=== PATIENT | female | born 1945 | race African-American/Black ===

== ENCOUNTER 2017-11-20 21:11 | Emergency (ER) | payer OTHER, MEDICAID ==
[~2017-11-20] VITALS: Ht 165.1 cm; Wt 91.0 kg
[2017-11-20] MEDS ORDERED: DEXTROSE 50% WATER 50ML SYRINGE IV ONE (22:15)
[2017-11-21 00:44] LABS: HEMATOCRIT. 34.9 % (36.0-48.0); HEMOGLOBIN. 11.2 g/dL (12.0-16.0); MEAN CORPUSCULAR HEMOGLOBIN 31.3 pg (28.0-32.0); MEAN CORPUSCULAR VOLUME 96.9 fL (81.0-99.0); MEAN PLATELET VOLUME 7.5 fl (7.4-10.4); PLATELET 288 x1000/uL (130-400); RED CELL DISTRIBUTION WIDTH 17.9 % (11.6-14.6)
[2017-11-21 01:03] LABS: PLATELET ESTIMATE NORMAL
[2017-11-21 03:39] VITALS: BP 126/51
[2017-11-21] MEDS ORDERED: ACETAMINOPHEN 325MG TABLET PO ONE (04:00)
== END 2017-11-21 04:27 | disposition home or self-care (01) ==
LOC: ER 21:40
DX: E11.649 Type 2 diabetes mellitus with hypoglycemia without coma (principal); I12.9 Hypertensive chronic kidney disease with stage 1 through stage 4 chronic kidney disease, or unspecified chronic kidney disease; E11.22 Type 2 diabetes mellitus with diabetic chronic kidney disease; N18.9 Chronic kidney disease, unspecified; I44.0 Atrioventricular block, first degree; G93.41 Metabolic encephalopathy; D72.829 Elevated white blood cell count, unspecified; R94.31 Abnormal electrocardiogram [ECG] [EKG]; Z98.890 Other specified postprocedural states
CPT/HCPCS: 36415; 80048; 82962; 85025; 93005; 96374; 99285

== ENCOUNTER 2022-04-27 20:10 | Emergency (ER) | payer OTHER, MEDICAID ==
[~2022-04-27] VITALS: Ht 160 cm; Wt 87.0 kg
[2022-04-28 00:43] LABS: BASOPHILS % 0.4 % (0.0-2.0); EOSINOPHILS % 3.3 % (0.0-5.0); HEMATOCRIT. 31.5 % (36.0-48.0); HEMOGLOBIN. 10.2 g/dL (12.0-16.0); LYMPHOCYTES % 12.4 % (20.0-50.0); MEAN CORPUSCULAR HEMOGLOBIN 32.6 pg (28.0-32.0); MEAN CORPUSCULAR VOLUME 100.5 fL (81.0-99.0); MEAN PLATELET VOLUME 8.8 fl (7.4-10.4); MONOCYTES % 7.9 % (2.0-8.0); PLATELET 228 x1000/uL (130-400); RED BLOOD CELL COUNT 3.13 mill/uL (4.2-5.4); RED CELL DISTRIBUTION WIDTH 15.6 % (11.6-14.6)
[2022-04-28] MEDS ORDERED: BACITRACIN ZINC OINT UDPKT TOP ONE (01:45)
[2022-04-28 02:20] VITALS: BP 140/58
== END 2022-04-28 02:21 | disposition home or self-care (01) ==
LOC: ER 20:10
DX: T82.838A Hemorrhage due to vascular prosthetic devices, implants and grafts, initial encounter (principal); E11.22 Type 2 diabetes mellitus with diabetic chronic kidney disease; I12.0 Hypertensive chronic kidney disease with stage 5 chronic kidney disease or end stage renal disease; N18.6 End stage renal disease; Z99.2 Dependence on renal dialysis; Z96.659 Presence of unspecified artificial knee joint; Z88.5 Allergy status to narcotic agent; Y84.1 Kidney dialysis as the cause of abnormal reaction of the patient, or of later complication, without mention of misadventure at the time of the procedure; Y92.018 Other place in single-family (private) house as the place of occurrence of the external cause
CPT/HCPCS: 36415; 80048; 85025; 86850; 86900; 93005; 99283

== ENCOUNTER 2023-06-16 17:31 | Emergency (ER) | payer OTHER, MEDICAID ==
[~2023-06-16] VITALS: Ht 157.5 cm; Wt 82.0 kg
[2023-06-16 17:32] VITALS: BP 110/64; PULSE 74; RESP 18; TEMP 98.3; O2SAT 96
[2023-06-16 18:10] LABS: BASOPHILS % 0.7 % (0.0-2.0); DIFFERENTIAL COMMENT 0; EOSINOPHILS % 2.8 % (0.0-5.0); HEMOGLOBIN. 11.1 g/dL (12.0-16.0); LYMPHOCYTES % 16.7 % (20.0-50.0); MEAN CORPUSCULAR HEMOGLOBIN 32.8 pg (28.0-32.0); MEAN CORPUSCULAR HGB CONC 32.7 g/dL (31.0-37.0); MEAN CORPUSCULAR VOLUME 100.3 fL (81.0-99.0); MEAN PLATELET VOLUME 8.2 fl (7.4-10.4); MONOCYTES % 10.1 % (2.0-8.0); NEUTROPHILS % 69.7 % (40.0-76.0); PLATELET 232 x1000/uL (130-400); RED BLOOD CELL COUNT 3.39 mill/uL (4.2-5.4); RED CELL DISTRIBUTION WIDTH 15.3 % (11.6-14.6); WHITE BLOOD COUNT 7.5 x1000/uL (4.5-11.0)
[2023-06-16 18:24] LABS: CHLORIDE 110 mEq/L (98-107); INDEX HEMOLYSI 1 (1-3); INDEX ICTERIC 1 (1-4); INDEX LIPEMIC 1 (1-3); POTASSIUM 4.5 mEq/L (3.5-5.1); SODIUM 141 mEq/L (136-145)
[2023-06-16 18:31] LABS: ALANINE AMINOTRANSFERASE 12 IU/L (13-61); ASPARTATE AMINOTRANSFERASE 11 IU/L (15-37); BILIRUBIN TOTAL 0.2 mg/dL (0.1-1.0); CALCIUM 8.8 mg/dL (8.5-10.1); CARBON DIOXIDE 28 mEq/L (21-32); CREATININE 3.5 mg/dL (0.6-1.3); GLUCOSE 137 mg/dL (70-105); PROTEIN TOTAL 6.9 g/dL (6.0-8.3); UREA NITROGEN BLOOD 13 mg/dL (7-21)
== END 2023-06-16 18:55 | disposition home or self-care (01) ==
LOC: ER 17:31
DX: T82.838A Hemorrhage due to vascular prosthetic devices, implants and grafts, initial encounter (principal); I12.0 Hypertensive chronic kidney disease with stage 5 chronic kidney disease or end stage renal disease; E11.22 Type 2 diabetes mellitus with diabetic chronic kidney disease; N18.6 End stage renal disease; Z99.2 Dependence on renal dialysis; X58.XXXA Exposure to other specified factors, initial encounter
CPT/HCPCS: 36415; 80053; 85025; 99283

== ENCOUNTER 2023-07-10 17:21 | Emergency (ER) | payer OTHER, MEDICAID ==
[~2023-07-10] VITALS: Ht 172.7 cm; Wt 82.0 kg
[2023-07-10 17:28] VITALS: O2SAT 98
[2023-07-10 17:53] VITALS: BP 126/56; PULSE 70; RESP 16; TEMP 98.3
== END 2023-07-10 18:08 | disposition home or self-care (01) ==
LOC: ER 17:21
DX: T82.838A Hemorrhage due to vascular prosthetic devices, implants and grafts, initial encounter (principal); E11.22 Type 2 diabetes mellitus with diabetic chronic kidney disease; N18.6 End stage renal disease; M19.90 Unspecified osteoarthritis, unspecified site; E11.9 Type 2 diabetes mellitus without complications; I10 Essential (primary) hypertension; Z98.890 Other specified postprocedural states; Z88.0 Allergy status to penicillin; Z88.5 Allergy status to narcotic agent; Z99.2 Dependence on renal dialysis; X58.XXXA Exposure to other specified factors, initial encounter; Y93.89 Activity, other specified; Y92.89 Other specified places as the place of occurrence of the external cause; Y99.8 Other external cause status
CPT/HCPCS: 99283

== ENCOUNTER 2023-08-17 17:53 | Emergency (ER) | payer OTHER, MEDICAID ==
[~2023-08-17] VITALS: Ht 167.6 cm; Wt 84.0 kg
[2023-08-17 17:58] VITALS: O2SAT 94
[2023-08-17] MEDS ORDERED: HYDROCODONE/ACETAMINOPHEN 5/325MG TABLET PO ONE (18:30)
[2023-08-17 20:30] LABS: BASOPHILS % 0.4 % (0.0-2.0); DIFFERENTIAL COMMENT 0; EOSINOPHILS % 1.8 % (0.0-5.0); HEMOGLOBIN. 10.4 g/dL (12.0-16.0); LYMPHOCYTES % 10.7 % (20.0-50.0); MEAN CORPUSCULAR HEMOGLOBIN 32.9 pg (28.0-32.0); MEAN CORPUSCULAR HGB CONC 32.4 g/dL (31.0-37.0); MEAN CORPUSCULAR VOLUME 101.6 fL (81.0-99.0); MEAN PLATELET VOLUME 8.1 fl (7.4-10.4); MONOCYTES % 8.7 % (2.0-8.0); NEUTROPHILS % 78.4 % (40.0-76.0); PLATELET 226 x1000/uL (130-400); RED BLOOD CELL COUNT 3.15 mill/uL (4.2-5.4); RED CELL DISTRIBUTION WIDTH 16.7 % (11.6-14.6); WHITE BLOOD COUNT 8.6 x1000/uL (4.5-11.0)
[2023-08-17 21:13] LABS: ALANINE AMINOTRANSFERASE < 7 IU/L (10-49); ALBUMIN 3.3 g/dL (3.2-4.8); ASPARTATE AMINOTRANSFERASE 11 IU/L (<34); BILIRUBIN TOTAL 0.2 mg/dL (0.1-1.0); CALCIUM 9.3 mg/dL (8.7-10.4); CARBON DIOXIDE 28 mEq/L (21-32); CHLORIDE 108 mEq/L (98-107); CREATININE 3.8 mg/dL (0.6-1.0); GLUCOSE 108 mg/dL (70-105); POTASSIUM 5.3 mEq/L (3.5-5.1); PROTEIN TOTAL 5.7 g/dL (6.0-8.3); SODIUM 144 mEq/L (136-145); UREA NITROGEN BLOOD 11 mg/dL (9-23)
[2023-08-17] MEDS ORDERED: ONDANSETRON HCL 4MG/2ML INJ IV ONE (22:45)
[2023-08-17] MEDS ORDERED: MORPHINE SULFATE 4 MG/ML CPJ (NOT FOR IM USE) IV ONE (22:45)
[2023-08-18] MEDS ORDERED: MORPHINE SULFATE 4 MG/ML CPJ (NOT FOR IM USE) IV NR (01:30)
[2023-08-18] MEDS ORDERED: ONDANSETRON HCL 4MG/2ML INJ IV NR (01:30)
[2023-08-18 02:20] VITALS: BP 145/61; PULSE 68; RESP 21; TEMP 98.3
== END 2023-08-18 03:07 | disposition short-term general hospital (02) ==
LOC: ER 17:53
DX: S72.002A Fracture of unspecified part of neck of left femur, initial encounter for closed fracture (principal); I12.0 Hypertensive chronic kidney disease with stage 5 chronic kidney disease or end stage renal disease; E11.22 Type 2 diabetes mellitus with diabetic chronic kidney disease; N18.6 End stage renal disease; Z99.2 Dependence on renal dialysis; X58.XXXA Exposure to other specified factors, initial encounter; Y93.89 Activity, other specified; Y92.89 Other specified places as the place of occurrence of the external cause; Y99.8 Other external cause status
CPT/HCPCS: 99285; 72192; 80053; 85025; 36415; 73502; 96374; 96375; J2405; J2270